=== PATIENT | male | born 1950 | race Caucasian/White ===

== ENCOUNTER 2017-08-31 17:49 | Inpatient (IN) | payer MEDICARE ==
[~2017-08-31] VITALS: Ht 167.6 cm; Wt 124.3 kg
--- NOTE | ~2017-08-31 | EC ---
PATIENT:SCOTT LAWRENCE DATE OF SERVICE: 08/31/17 SEX: M MEDICAL RECORD: [id number] DATE OF : 50 LOCATION:[facility] AGE OF PATIENT: 66 ADMISSION DATE: 08/31/17 REFERRING PHYSICIAN: INTERPRETING PHYSICIAN: JAMESON SYED MD ECHOCARDIOGRAM REPORT ECHO CHARGES 4 ECHO COMPLETE Date: 09/01 CLINICAL DIAGNOSIS: BILATERAL PLERUAL EFFUSION ECHOCARDIOGRAPHIC MEASUREMENTS (adult normal given) AC root (d.<3.7cm) 3.5 cm LV Septum d (<1.2 cm> 1.3 cm Valve Excursion 2.0 cm LV Septum (systole) 1.6 cm Left Atria (s.<4.0cm> 4.5 cm LVPW d(<1.2cm) 1.3 cm RV (d.<2.3cm) 5.2 cm LVPW (sytole) 1.8 cm LV diastole(<5.6CM) 5.1 cm MV E-F(>70mm/sec) cm LV systole 3.7 cm LVOT Diameter 1.7 cm MV exc.(>10mm) 1.9 cm Est.ejection fraction (50-75%) % DOPPLER: LVIT cm/sec A 48.0 cm/sec E 131 cm/sec LA cm/sec RVSP 15 mmHg LVOT 84 cm/sec AOP1/2T m/s Asc. Ao 115 cm/sec RVOT 69 cm/sec RA cm/sec PA 90 cm/sec AV Gradient Peak 5.25 mmHg AV Mean 2.50 mmHg AV Area 1.8 cm MV Gradient Peak 9.99 mmHg MV Mean 3.16 mmHg MV Area cm COMMENTS: Phlebotomist: 2 JALEEL MONZON Mechanical Process Engineer: 4 Dr. Syed TAPE# PACS Pericardial Effusion N DATE OF SERVICE: PROCEDURE: Transthoracic echocardiogram. FINDINGS: 1. Left ventricle has left ventricular hypertrophy, appears by inflow characteristics there is atrial fibrillation. The overall ejection fraction is 50% to 55%. There is no obvious regional wall motion abnormalities. 2. The left atrium is moderately dilated. 3. The mitral valve has moderate mitral regurgitation. ECHOCARDIOGRAM REPORT [id number] SCOTT LAWRENCE 4. Tricuspid valve has no significant regurgitation. RVSP appears to be normal. 5. The right ventricle is moderate to severely dilated with mild hypokinesis. 6. The right atrium is overall normal to mildly enlarged. 7. The pulmonic valve is normal. 8. There is no significant pericardial effusion. CONCLUSION: The patient has evidence of hypertensive heart disease. There is an atrial dysrhythmia noted. The patient has mitral annular calcification, otherwise preserved left ventricular systolic function. TRANSINT:[id number] Voice Confirmation ID: [id number] DOCUMENT ID: [id number] JAMESON SYED MD at 1127 CC: [id number] DICTATION DATE: 09/02/17920 [facility] IRONER: 09/02/17 1130 DIS IN 09/06/17 [facility] [address] [place] [address]
[2017-09-01 00:11] VITALS: BP 136/79; BMI 42.7
[2017-09-01 00:43] VITALS: BP 140/68
[2017-09-01] MEDS ORDERED: LISINOPRIL2.5 MG PO (05:18)
[2017-09-01] MEDS ORDERED: ZOLOFT50 MG PO (05:18)
[2017-09-01] MEDS ORDERED: FUROSEMIDE20 MG PO (05:19)
[2017-09-01] MEDS ORDERED: LANOXIN125 MCG PO (05:19)
[2017-09-01] MEDS ORDERED: LEVOTHYROXINE100 MCG PO (05:19)
[2017-09-01] MEDS ORDERED: K-DUR20 MEQ PO (05:20)
[2017-09-01] MEDS ORDERED: FLOMAX0.4 MG PO (05:20)
[2017-09-01] MEDS ORDERED: TOPROL XL25 MG PO (05:20)
[2017-09-01] MEDS ORDERED: GABAPENTIN100 MG PO (05:21)
[2017-09-01] MEDS ORDERED: FOLIC ACID1 MG PO (05:21)
[2017-09-01] MEDS ORDERED: LANTUS INSULIN10 ML SC (05:21)
[2017-09-01] MEDS ORDERED: HUMALOG 30100 UNITS/ SC (05:23)
[2017-09-01 07:17] LABS: BASOPHILS 0.1 % (0-2); EOSINOPHILS 1.6 % (0-7); HEMATOCRIT 35.4 % (42.0-54.0); HEMOGLOBIN 10.4 g/dL (13.5-17.5); IMMATURE GRANULOCYTES 0.5 % (0-5); LYMPHOCYTES 25.1 % (15-50); MCHC 29.4 g/dL (31.0-37.0); MCV 81.8 fL (80.0-100.0); NEUTROPHILS 59.7 % (40-80); PLATELET COUNT 243 10x3/uL (130-400); RBC 4.33 10x6/uL (4.20-6.10); RDW 17.6 % (11.5-14.5); WBC 8.6 10x3/uL (4.8-10.8)
[2017-09-01 07:34] LABS: INR 1.5 (0.85-1.17); PROTIME 17.7 SECONDS (11.6-15.0)
[2017-09-01 07:43] LABS: ALBUMIN 1.8 g/dL (3.4-5.0); BILIRUBIN - TOTAL 0.13 mg/dL (0.2-1.3); CALCIUM 7.9 mg/dL (8.5-10.1); CARBON DIOXIDE 34.1 mmol/L (21.0-32.0); CREATININE - SERUM 1.3 mg/dL (0.6-1.3); POTASSIUM - SERUM 4.1 mmol/L (3.5-5.1); PROTEIN - SERUM 5.3 g/dL (6.4-8.2)
[2017-09-01 09:05] VITALS: BP 102/47
[2017-09-01 11:57] VITALS: BP 115/66
[2017-09-01 14:55] LABS: % SATURATION 10 % (15-55); IRON 34 ug/dl (35-150); TOTAL IRON BIND CAPACITY 334 ug/dl (260-445); UNSAT IRON BIND CAPACITY 300 ug/dl (150-375)
[2017-09-01 15:08] VITALS: BMI 42.6
[2017-09-01 16:53] VITALS: BP 126/67
[2017-09-01 17:56] LABS: APPEARANCE CLEAR (CLEAR); COLOR YELLOW (YELLOW); NITRITE NEGATIVE (NEGATIVE); SPECIFIC GRAVITY 1.015 (1.005-1.020)
[2017-09-01 17:57] LABS: BACTERIA FEW /hpf (NONE SEEN); BILIRUBIN NEGATIVE (NEGATIVE); GLUCOSE NEGATIVE (NEGATIVE); KETONE NEGATIVE (NEGATIVE); PROTEIN TRACE mg/dL (NEGATIVE); RED CELLS - URINE OCC /hpf (0-5); UROBILINOGEN NORMAL (NORMAL); WHITE CELLS - URINE OCC /hpf (0-5)
[2017-09-01 20:00] VITALS: BP 134/65
[2017-09-02 03:42] VITALS: BP 133/65
[2017-09-02 05:06] LABS: BASOPHILS 0.1 % (0-2); EOSINOPHILS 2.5 % (0-7); HEMATOCRIT 34.1 % (42.0-54.0); HEMOGLOBIN 10.1 g/dL (13.5-17.5); IMMATURE GRANULOCYTES 0.5 % (0-5); LYMPHOCYTES 23.5 % (15-50); MCH 23.8 pg (26.0-34.0); MCHC 29.6 g/dL (31.0-37.0); MCV 80.4 fL (80.0-100.0); MEAN PLATELET VOLUME 9.8 fL (7.4-10.4); MONOCYTES 12.9 % (2-11); NEUTROPHILS 60.5 % (40-80); PLATELET COUNT 215 10x3/uL (130-400); RBC 4.24 10x6/uL (4.20-6.10); RDW 17.7 % (11.5-14.5); WBC 7.9 10x3/uL (4.8-10.8)
[2017-09-02 05:49] LABS: CALC OSMOLALITY 288 mosm/kg (275-300); CALCIUM 7.8 mg/dL (8.5-10.1); CARBON DIOXIDE 32.6 mmol/L (21.0-32.0); CHLORIDE - SERUM 103 mmol/L (98-107); GLUCOSE 279 mg/dL (74-106); LDH 172 U/L (85-227); MAGNESIUM - SERUM 1.7 mg/dL (1.8-2.4); PHOSPHOROUS 3.7 mg/dL (2.5-4.9); POTASSIUM - SERUM 3.9 mmol/L (3.5-5.1); SODIUM 137 mmol/L (136-145); THYROID STIMULATING HORMONE 3.37 uIU/mL (0.36-3.74); TROPONIN-I < 0.017 ng/mL (0.000-0.060); UREA NITROGEN 26 mg/dL (7-18); eGFR NON AFRICAN AMERICAN 79 mL/min (90-120)
[2017-09-02 05:54] LABS: INR 1.58 (0.85-1.17); PROTIME 18.3 SECONDS (11.6-15.0)
[2017-09-02 09:05] VITALS: BP 134/63
[2017-09-02 09:35] VITALS: Ht 167.6 cm; Wt 124.3 kg
[2017-09-02 12:48] VITALS: BP 106/49
[2017-09-02 17:17] LABS: PROTEIN - BODY FLUID 1.6 G/DL
[2017-09-02 19:19] VITALS: BP 134/77
[2017-09-02 19:21] LABS: MACROPHAGES BF 15 %; MESOTHELIALS BF 4 %; NEUT - BF 56 %
[2017-09-02 23:41] VITALS: BP 124/64
[2017-09-03 03:42] VITALS: BP 111/56
[2017-09-03 05:53] LABS: BASOPHILS 0.1 % (0-2); HEMATOCRIT 34.9 % (42.0-54.0); HEMOGLOBIN 10.4 g/dL (13.5-17.5); IMMATURE GRANULOCYTES 0.4 % (0-5); LYMPHOCYTES 19.6 % (15-50); MCH 23.7 pg (26.0-34.0); MCHC 29.8 g/dL (31.0-37.0); MCV 79.7 fL (80.0-100.0); MONOCYTES 10.1 % (2-11); NEUTROPHILS 65.8 % (40-80); PLATELET COUNT 225 10x3/uL (130-400); RBC 4.38 10x6/uL (4.20-6.10); RDW 17.6 % (11.5-14.5); WBC 8.2 10x3/uL (4.8-10.8)
[2017-09-03 06:04] LABS: INR 1.58 (0.85-1.17); PROTIME 18.4 SECONDS (11.6-15.0)
[2017-09-03 06:16] LABS: ANION GAP 6.8 mmol/L (8-16); CALCIUM 7.7 mg/dL (8.5-10.1); CARBON DIOXIDE 32.6 mmol/L (21.0-32.0); CREATININE - SERUM 1.1 mg/dL (0.6-1.3); MAGNESIUM - SERUM 1.9 mg/dL (1.8-2.4); PHOSPHOROUS 3.4 mg/dL (2.5-4.9); POTASSIUM - SERUM 3.4 mmol/L (3.5-5.1)
[2017-09-03 08:43] VITALS: BP 106/59
[2017-09-03 11:18] LABS: ANA REFLEX - DIRECT Negative (Negative)
[2017-09-03 11:48] VITALS: BP 124/59
[2017-09-03 19:40] VITALS: BP 117/51
[2017-09-03 21:06] LABS: AFB SPECIMEN PROCESSING Not Indicated (())
[2017-09-03 23:35] VITALS: BP 107/49
[2017-09-04 04:12] VITALS: BP 190/82
[2017-09-04 06:21] LABS: BASOPHILS 0 % (0-2); EOSINOPHILS 3.1 % (0-7); HEMATOCRIT 33.4 % (42.0-54.0); HEMOGLOBIN 10.1 g/dL (13.5-17.5); IMMATURE GRANULOCYTES 0.4 % (0-5); LYMPHOCYTES 23.7 % (15-50); MCH 24.1 pg (26.0-34.0); MCHC 30.2 g/dL (31.0-37.0); MCV 79.7 fL (80.0-100.0); MEAN PLATELET VOLUME 10.4 fL (7.4-10.4); MONOCYTES 10.9 % (2-11); NEUTROPHILS 61.9 % (40-80); PLATELET COUNT 210 10x3/uL (130-400); RBC 4.19 10x6/uL (4.20-6.10); RDW 17.8 % (11.5-14.5); WBC 7.4 10x3/uL (4.8-10.8)
[2017-09-04 06:34] LABS: INR 1.5 (0.85-1.17); PROTIME 17.6 SECONDS (11.6-15.0)
[2017-09-04 06:46] LABS: CALC OSMOLALITY 282 mosm/kg (275-300); CALCIUM 7.6 mg/dL (8.5-10.1); CARBON DIOXIDE 33.1 mmol/L (21.0-32.0); CHLORIDE - SERUM 106 mmol/L (98-107); MAGNESIUM - SERUM 1.8 mg/dL (1.8-2.4); PHOSPHOROUS 3.1 mg/dL (2.5-4.9); POTASSIUM - SERUM 3.8 mmol/L (3.5-5.1); SODIUM 140 mmol/L (136-145); UREA NITROGEN 21 mg/dL (7-18); eGFR NON AFRICAN AMERICAN 79 mL/min (90-120)
[2017-09-04 06:49] LABS: GLUCOSE 114 mg/dL (74-106)
[2017-09-04 09:36] VITALS: BP 118/56
[2017-09-04 15:03] VITALS: BP 108/56
[2017-09-04 18:07] VITALS: BP 117/52
[2017-09-04 21:17] VITALS: BP 121/58
[2017-09-05 04:50] VITALS: BP 124/64
[2017-09-05 06:52] LABS: BASOPHILS 0.1 % (0-2); EOSINOPHILS 4.3 % (0-7); HEMATOCRIT 33.1 % (42.0-54.0); HEMOGLOBIN 9.9 g/dL (13.5-17.5); IMMATURE GRANULOCYTES 0.7 % (0-5); MCHC 29.9 g/dL (31.0-37.0); MCV 80.1 fL (80.0-100.0); MEAN PLATELET VOLUME 10.4 fL (7.4-10.4); MONOCYTES 10.2 % (2-11); NEUTROPHILS 59.7 % (40-80); PLATELET COUNT 201 10x3/uL (130-400); RBC 4.13 10x6/uL (4.20-6.10); RDW 17.8 % (11.5-14.5); WBC 7.4 10x3/uL (4.8-10.8)
[2017-09-05 07:18] LABS: CALC OSMOLALITY 281 mosm/kg (275-300); CALCIUM 7.6 mg/dL (8.5-10.1); CHLORIDE - SERUM 107 mmol/L (98-107); CREATININE - SERUM 0.9 mg/dL (0.6-1.3); GLUCOSE 94 mg/dL (74-106); POTASSIUM - SERUM 3.5 mmol/L (3.5-5.1); SODIUM 141 mmol/L (136-145); UREA NITROGEN 15 mg/dL (7-18); eGFR NON AFRICAN AMERICAN 90 mL/min (90-120)
[2017-09-05 07:19] LABS: PROTIME 14.5 SECONDS (11.6-15.0)
[2017-09-05 07:20] LABS: INR 1.17 (0.85-1.17)
[2017-09-05 09:27] VITALS: BP 101/50
[2017-09-05 14:07] VITALS: BP 103/49
[2017-09-05 17:02] VITALS: BP 121/52
[2017-09-05 22:37] VITALS: BP 154/64
[2017-09-06 04:06] VITALS: BP 126/55
[2017-09-06 06:19] LABS: BASOPHILS 0.1 % (0-2); EOSINOPHILS 3.7 % (0-7); HEMATOCRIT 33.5 % (42.0-54.0); HEMOGLOBIN 9.8 g/dL (13.5-17.5); IMMATURE GRANULOCYTES 0.4 % (0-5); LYMPHOCYTES 24.6 % (15-50); MCH 23.6 pg (26.0-34.0); MCHC 29.3 g/dL (31.0-37.0); MCV 80.7 fL (80.0-100.0); MONOCYTES 11.7 % (2-11); NEUTROPHILS 59.5 % (40-80); PLATELET COUNT 193 10x3/uL (130-400); RBC 4.15 10x6/uL (4.20-6.10); RDW 17.9 % (11.5-14.5); WBC 7.9 10x3/uL (4.8-10.8)
[2017-09-06 06:32] LABS: INR 1.38 (0.85-1.17); PROTIME 16.5 SECONDS (11.6-15.0)
[2017-09-06 06:45] LABS: CALC OSMOLALITY 278 mosm/kg (275-300); CALCIUM 7.7 mg/dL (8.5-10.1); CARBON DIOXIDE 35.1 mmol/L (21.0-32.0); CHLORIDE - SERUM 106 mmol/L (98-107); GLUCOSE 71 mg/dL (74-106); SODIUM 141 mmol/L (136-145); UREA NITROGEN 13 mg/dL (7-18); eGFR NON AFRICAN AMERICAN 79 mL/min (90-120)
[2017-09-06 08:25] VITALS: BP 116/51
[2017-09-06 11:37] VITALS: BP 118/58
[2017-09-06] MEDS ORDERED: OMNICEF300 MG PO (13:36)
[2017-09-06] MEDS ORDERED: VIBRAMYCIN 100100 MG PO (13:37)
[2017-09-06] MEDS ORDERED: TOPROL XL50 MG PO (13:37)
[2017-09-06] MEDS ORDERED: COUMADIN5 MG PO (13:37)
[2017-09-06] MEDS ORDERED: FUROSEMIDE20 MG PO (13:38)
[2017-09-07 17:13] LABS: FUNGUS STAIN Final report (())
[2017-09-30 07:32] LABS: FUNGUS MYCOLOGY CULTURE Final report (())
[2017-10-23 07:34] LABS: ACID FAST CULTURE Negative (()); ACID FAST SMEAR Negative (())
== END 2017-09-06 17:31 | disposition home health service (06) | DRG 292 ==
LOC: D.MS 17:49
PROVIDERS: Internal Medicine Nephrology; Internal Medicine Pulmonary Disease; Radiology Diagnostic Radiology
PROC: 0W9B3ZZ Drainage of Left Pleural Cavity, Percutaneous Approach (ICD-10-PCS; principal; 2017-09-02 15:15)
DX: I11.0 Hypertensive heart disease with heart failure (principal); J90 Pleural effusion, not elsewhere classified; J98.11 Atelectasis; F17.213 Nicotine dependence, cigarettes, with withdrawal; N17.9 Acute kidney failure, unspecified; Z68.41 Body mass index [BMI] 40.0-44.9, adult; E44.0 Moderate protein-calorie malnutrition; I82.441 Acute embolism and thrombosis of right tibial vein; I50.43 Acute on chronic combined systolic (congestive) and diastolic (congestive) heart failure; I10 Essential (primary) hypertension; E78.5 Hyperlipidemia, unspecified; E11.9 Type 2 diabetes mellitus without complications; Z79.4 Long term (current) use of insulin; E11.21 Type 2 diabetes mellitus with diabetic nephropathy; I51.7 Cardiomegaly; E66.01 Morbid (severe) obesity due to excess calories; E03.9 Hypothyroidism, unspecified; D50.9 Iron deficiency anemia, unspecified; J44.9 Chronic obstructive pulmonary disease, unspecified; R53.81 Other malaise; F32.9 Major depressive disorder, single episode, unspecified